=== PATIENT | female | born 1995 | race Caucasian/White ===

== ENCOUNTER 2016-10-09 11:20 | Emergency (ER) | payer MEDICAID ==
[2016-10-09] MEDS ORDERED: KEPPRA 500 MG in SOD CHLOR 0.9% INJ 100 ML IV ONE (14:20)
== END 2016-10-09 15:06 | disposition home or self-care (01) ==
LOC: ER 11:20
DX: G40.89 Other seizures (principal); T50.996A Underdosing of other drugs, medicaments and biological substances, initial encounter; Z91.138 Patient's unintentional underdosing of medication regimen for other reason
CPT/HCPCS: 36415; 80053; 81003; 82947; 84703; 85025; 96365